=== PATIENT | female | born 1985 | race Caucasian/White ===

== ENCOUNTER 2017-02-11 21:12 | Emergency (ER) | payer BC ==
[2017-02-11] MEDS ORDERED: Levofloxacin 250 MG Tab PO ONE (21:45)
--- NOTE | 2017-02-11 21:54 | EDM.PDOC ---
ED HPI GENERAL MEDICAL PROBLEM - General Chief Complaint: Fever Stated Complaint: GENERAL Time Seen by Provider: 02/11/17 21:22 Source of Information: Reports: Patient, Family History Limitations: Reports: No Limitations - History of Present Illness INITIAL COMMENTS - FREE TEXT/NARRATIVE: 31 y.o.w.f s/p C section, was seen in the clinic for fever. Her WBC was 18K and her UA was pos for a UTI. A pelvic exam was performed at the clinic. Pt is breast feeding. BP 138/81 Temp 37.7 RR 14 Pulse ox 100% Pulse 90 bpm. Onset Date: 02/11/17 Onset Time: 07:00 Duration: Day(s): Location: Reports: Generalized Quality: Reports: Burning Severity: Mild Worsens with: Reports: Other (urination) Context: Reports: Other (S/P C section, fever) Associated Symptoms: Reports: Fever/Chills Lower Abdomen Pain Score (Numeric/FACES): 4 - Related Data Allergies Allergy/AdvReac Type Severity Reaction Status Date / Time Progestins Allergy Cannot Verified 02/11/17 21:20 Remember Home Meds: Home Meds Levofloxacin 500 mg PO DAILY #9 tablet 02/11/17 [Rx] Past Medical History HEENT History: Reports: None [employer] History: Reports: Polycystic Ovaries, Other OB/BYN History: amenorrhea-infertility Psychiatric History: Reports: Depression - Infectious Disease History Infectious Disease History: Reports: Chicken Pox - Past Surgical History Female Surgical History: Reports: Section Social & Family History - Family History Family Medical History: Noncontributory - Tobacco Use Smoking Status *Q: Never Smoker Second Hand Smoke Exposure: No - Caffeine Use Caffeine Use: Reports: Coffee - Recreational Drug Use Recreational Drug Use: No ED ROS GENERAL - Review of Systems Review Of Systems: See Below Constitutional: Reports: Fever HEENT: Reports: No Symptoms Respiratory: Reports: No Symptoms Cardiovascular: Reports: No Symptoms Endocrine: Reports: No Symptoms GI/Abdominal: Reports: No Symptoms : Reports: Dysuria Musculoskeletal: Reports: No Symptoms Skin: Reports: No Symptoms Neurological: Reports: No Symptoms Psychiatric: Reports: No Symptoms Hematologic/Lymphatic: Reports: No Symptoms Immunologic: Reports: No Symptoms ED EXAM, RENAL/ - Physical Exam Exam: See Below Exam Limited By: No Limitations General Appearance: Alert, WD/WN, No Apparent Distress Eye Exam: Bilateral Eye: Normal Inspection Ears: Normal External Exam Nose: Normal Inspection Throat/Mouth: Normal Inspection, Normal Lips Head: Atraumatic, Normocephalic Neck: Normal Inspection, Supple, Non-Tender Respiratory/Chest: No Respiratory Distress, Lungs Clear, Normal Breath Sounds Cardiovascular: Normal Peripheral Pulses, Regular Rate, Rhythm, No Edema, No Gallop GI/Abdominal: Normal Bowel Sounds, Soft, Non-Tender (Female) Exam: Other (pelvic exam was done at the clinic today) Rectal (Female) Exam: Deferred Back Exam: Normal Inspection, Full Range of Motion Extremities: Normal Inspection, Normal Range of Motion, Non-Tender, No Pedal Edema Neurological: Alert, Oriented, CN II-XII Intact, Normal Cognition, Normal Gait, No Motor/Sensory Deficits Psychiatric: Normal Affect, Normal Mood Skin Exam: Warm, Dry, Intact, Normal Color, No Rash Lymphatic: No Adenopathy Course - Vital Signs Text/Narrative:: 31 y.o.w.f s/p C section, was seen in the clinic for fever. Her WBC was 18K and her UA was pos for a UTI. A pelvic exam was performed at the clinic. Pt is breast feeding. BP 138/81 Temp 37.7 RR 14 Pulse ox 100% Pulse 90 bpm. PE: Dysuria, temp 37.7 Labs: WBC 18K UA pos for UTI with hematuria Impression: UTI, S/P C section, microscopic hematuria Tx: Levoquine Reexam: Improved BP 113/76 on D/C Plan: D/C with instruction Last Recorded V/S: Last Vital Signs Temp 37.1 C 02/11/17 22:25 Pulse 97 02/11/17 22:25 Resp 14 02/11/17 22:25 BP 115/68 02/11/17 22:25 Pulse Ox 100 02/11/17 21:22 - Orders/Labs/Meds Meds: Medications Discontinued Medications Generic Name Dose Route Start Last Admin Trade Name Messi PRN Reason Stop Dose Admin Levofloxacin 500 mg 02/11/17 21:45 02/11/17 22:01 Levaquin PO 02/11/17 21:46 500 mg ONETIME ONE Administration Phenazopyridine HCl 95 mg 02/11/17 22:05 Urinary Pain Relief PO 02/11/17 22:06 ONETIME STA Departure - Departure Time of Disposition: 21:53 Disposition: Home, Self-Care 01 Condition: Good Clinical Impression: UTI (urinary tract infection) Qualifiers: Urinary tract infection type: acute cystitis Hematuria presence: with hematuria Qualified Code(s): N30.01 - Acute cystitis with hematuria - Discharge Information Prescriptions: Levofloxacin 500 mg PO DAILY #9 tablet Referrals: Ranjit Puga MD [Primary Care Provider] - Forms: ED Department Discharge Additional Instructions: Please increase water intake, please take the Abx daily as recommended, follow up in 4-5 days. Please come back to the ed if your symptoms get worse acutely.
[2017-02-11] MEDS ORDERED: Phenazopyridine 95 MG Tab PO STA (22:05)
[2017-02-11 22:26] VITALS: BP 115/68
== END 2017-02-11 22:17 | disposition home or self-care (01) ==
LOC: FB.ED 21:12
DX: N30.01 Acute cystitis with hematuria (principal); Z88.8 Allergy status to other drugs, medicaments and biological substances
CPT/HCPCS: 36415; 80053; 81001; 85025; 87086; 87088; 87186; 99283; A9270